=== PATIENT | female | born 1975 | race African-American/Black ===

== ENCOUNTER 2018-10-30 07:50 | Observation (INO) ==
--- NOTE | 2018-10-30 07:59 | Emergency Department Note ---
Disposition Clinical Impression: Altered level of consciousness, Hypoglycemia, Insulin overdose Disposition: Transfer Short-Term Hosp Condition: Good Referrals: NONE,PCP [Non-Partnered Physician] - Forms: ED Satisfaction Letter, Work/School Release Time of Disposition: 09:38 ( will admit for observation) General Adult HPI - General Chief complaint: ED General Medical Stated complaint: low blood sugar Time Seen by Provider: 10/30/18 07:56 Source: patient, EMS Mode of arrival: EMS Limitations: no limitations Nursing Notes Reviewed: Yes Vital Signs Reviewed: Yes - History of Present Illness HPI Narrative: 43-year-old female who presents to the emergency department via EMS, with complaints of decreased level of consciousness. Patient with known history of insulin-dependent diabetes, found by EMS to have a low blood sugar at home of 43, patient's mother not knowing this gave patient a 50 units, of insulin prior to EMS arrival, patient was given oral glucose in route and had mild improvement of symptoms she, patient is alert awake here in the emergency department. Patient with prior history of being on hemodialysis, has had recent renal transplant, and is no longer on dialysis. She still has a shunt in her right upper extremity for hemodialysis. At present patient is alert awake and able to follow commands. Onset (ago): Just [employer] DEVELOPMENT [employer] Radiation: non-radiation Pain Scale: 0 Consistency: now resolved Improves with: other (with oral glucose) Worsens with: nothing Associated symptoms: Reports: denies other symptoms Treatments Prior to Arrival: other (oral glucose) - Related Data Home Medications Medication Instructions Recorded Confirmed Atorvastatin [Lipitor] 10 mg PO HS 07/21/18 10/30/18 Cholecalciferol (D-3) [Vitamin D] 2,000 unit PO DAILY 07/21/18 10/30/18 Dulaglutide [Trulicity] 0.75 mg SQ QWEEK 07/21/18 10/30/18 Ferrous Sulfate [Iron] 325 mg PO DAILY 07/21/18 10/30/18 Insulin ASPART [Novolog Flexpen] 0 unit SQ TID 07/21/18 10/30/18 Insulin Glargine,Hum.rec.anlog 25 unit SQ BID 07/21/18 10/30/18 [Lantus Solostar] Levothyroxine Sodium [Synthroid] 137 mcg PO DAILY 07/21/18 10/30/18 Metoprolol [Lopressor] 50 mg PO BID 07/21/18 10/30/18 Phentermine/Topiramate [Qsymia 7.5 1 cap PO DAILY 07/21/18 10/30/18 mg-46 mg Capsule] Tacrolimus [Prograf] 4 mg PO BID 07/21/18 10/30/18 Everolimus [Zortress] 6 tab PO BID 07/22/18 10/30/18 Allergies Allergy/AdvReac Type Severity Reaction Status Date / Time adhesive tape AdvReac Rash Verified 06/16/17 13:07 venlafaxine [From Effexor] AdvReac Agitated Verified 06/16/17 13:11 Constitutional: Denies: fever, chills, weakness, weight change Eyes: Denies: eye pain, eye discharge, vision change ENT ED: Denies: ear pain, throat pain, dental pain, hearing loss, epistaxis, congestion, dysphagia Cardiovascular: Denies: chest pain, palpitations, dyspnea on exertion, edema, syncope Respiratory: Denies: cough, dyspnea, wheezes, hemoptysis, stridor Gastrointestinal: Denies: abdominal pain, nausea, vomiting, diarrhea, constipation, hematemesis, melena, hematochezia Genitourinary: Denies: dysuria, frequency, hematuria, discharge Musculoskeletal: Denies: back pain, neck pain, arthralgia, myalgia Integumentary: Denies: rash, abrasion, lesions Neurological: Denies: headache, weakness, numbness, paresthesias, confusion, abnormal gait, vertigo Psychiatric: Denies: anxiety, depression, suicidal thoughts, homicidal thoughts, auditory hallucinations, visual hallucinations Endocrine: Reports: fatigue, heat or cold intolerance, polydipsia Hematological/Lymphatic: Denies: easy bleeding, easy bruising Allergic/Immunologic: Denies: facial swelling, urticaria Past Medical History - Past Medical History Medical history: Reports: diabetes Surgical history: Reports: transplant (kidney) Psychiatric history: Reports: no psych history - Social History Smoking Status: Never smoker Smokeless Tobacco Status: No Alcohol use: Reports: none Drug use: Reports: none Physical Exam - General Limitations: no limitations General appearance: alert - Head Head exam: atraumatic, normocephalic, normal inspection - Eye Eye exam: Present: normal appearance, PERRL, EOMI - Expanded Eye Exam Pupils: Left: reactive - ENT ENT exam: normal exam, normal oropharynx, mucous membranes moist - Expanded ENT Exam External ear exam: Present: normal external inspection Mouth exam: Present: normal external inspection Teeth exam: Present: normal inspection Throat exam: Present: normal inspection - Neck Neck exam: Present: normal inspection, full ROM, trachea midline - Chest Chest inspection: Present: normal inspection, symmetric chest wall rise - Respiratory Respiratory exam: Present: normal lung sounds bilaterally - Cardiovascular Cardiovascular exam: Present: regular rate, normal rhythm, normal heart sounds - Abdominal Exam Abdominal exam: Present: soft, Non-Tender. Absent: tenderness, distention, guarding, rebound, rigidity - Extremities Exam Extremities exam: Present: pedal edema, other (bilateral lower extremity edma, +2/+4 ) - Expanded Upper Extremity Exam Shoulder exam: Present: normal inspection, full ROM Arm exam: Present: normal inspection, full ROM Elbow exam: Present: normal inspection, full ROM Forearm/Wrist exam: Present: normal inspection, full ROM Hand exam: Present: normal inspection, full ROM Vascular exam: Normal: capillary refill, radial pulse - Expanded Lower Extremity Exam Hip/Pelvis exam: Present: normal inspection, full ROM Upper leg exam: Present: normal inspection, full ROM Knee exam: Present: normal inspection, full ROM Lower leg exam: Present: normal inspection, full ROM Ankle exam: Present: normal inspection, full ROM Foot/toe exam: Present: normal inspection, full ROM Neurovascular/Tendon exam: Absent: motor deficit, sensory deficit, tendon deficit - Back Exam Back exam: Present: normal inspection, full ROM. Absent: tenderness - Neurological Exam Neurological exam: Present: alert, oriented X3 - Expanded Neurological Exam Patient oriented to: Present: person, place, time Coma Scale Eye Opening: Spontaneous Coma Scale Motor Response: Obeys Commands Coma Scale Verbal Response: Oriented Coma Scale Total: 15 - Psychiatric Psychiatric exam: Present: normal affect, normal mood - Skin Skin exam: Present: warm, dry, intact, normal color Course Vital Signs Temperature 97.9 F 10/30/18 07:52 Pulse Rate 63 10/30/18 07:52 Respiratory Rate 18 10/30/18 07:52 Blood Pressure 126/80 10/30/18 07:52 O2 Sat by Pulse Oximetry 100 10/30/18 07:52 Temperature 97.9 F 10/30/18 07:52 Pulse Rate 67 04/27/19 08:39 Respiratory Rate 18 10/30/18 08:39 Blood Pressure 115/56 10/30/18 08:39 O2 Sat by Pulse Oximetry 100 10/30/18 08:39 Oxygen Delivery Oxygen Delivery Room Air Procedures - Central Line Placement Right Femoral Central Line Inserted*: Yes Central Line Catheter Replacement*: No Central Line Insertion: emergent, guidewire exchange Consent Obtained: verbal consent Procedural Pause: verify patient name and date of , timeout performed per policy Patient Placed on Monitor/Pulse Ox: Yes During the Procedure: clinician is wearing sterile gloves, cap, mask,& gown during insertion, sterile field and sterile technique are maintained, patient's face is covered with drape or mask and wearing a cap Central Line Prep: Povidone-Iodine 1% Prep the Procedure Site: apply chloraprep to the skin using a back and forth scrubbing motion Local Anesthetic: lidocaine 1% Amount of anesthesia used (mL): 5 Ultrasound Used for Placement: No Central Line Lumen Inserted: triple Post Procedure: sutured in place, good blood return, all ports aspirated, flushed, capped, sterile dressing applied Patient Tolerated Procedure: well Complications: none Name of Clinician Inserting Central Line: rafia berman Date: 10/30/18 Time: 08:32 Additional Comments: I attempted a central line placement and the patient's right internal jugular, the line met with resistance after I could not pass the guidewire after 2 attempts, I moved to the right femoral region and placed a triple-lumen catheter in the right femoral vein. Patient was emergently given an amp of D50 W through the port of the central line by the nurse. Patient's blood sugar has been bottoming out's. This was done and an emergent manner, secondary to emergency and not being able to obtain a peripheral line. Medical Decision Making - [facility] Narrative Medical decision making narrative: patient was given oral orange juice, patient was also given a tray of food and started on iv d5 ns at 125 ml/hr. labs area ontained, including, cbc, comp, ua. CBC and chemistries are within normal limits patient's BUN/creatinine are slightly elevated. Patient at this point with D5 0.9% normal saline at 125 mL's an hour his markedly improved, her repeat Accu-Chek here was in the 300 range. She is alert awake and able to get out of bed without difficulty. I contacted the hospitalist and patient will be placed them for overnight observation. - Medical Records Medical records reviewed: Yes I reviewed the patient's medical records. - Lab Data Lab results reviewed: Yes I reviewed the patient's lab results. Result diagrams: 10/30/18 08:32 10/30/18 08:32 Lab Results 10/30/18 10/30/18 10/30/18 Range/Units 08:32 08:32 09:16 WBC 8.0 (4.3-11.1) K/mcL RBC 3.47 L (3.82-4.97) M/mcL Hgb 9.3 L (11.5-15.4) g/dL Hct 29.6 L (35.3-44.9) % MCV 85.3 (83.0-100.0) fL MCH 26.8 L (28.0-33.3) pg MCHC 31.4 L (31.6-35.5) g/dL RDW 15.5 H (11.5-14.5) % Plt Count 227 (140-400) K/mcL MPV 9.8 (9.4-12.4) fL Immature Gran % 0.4 (0-4) % Seg Neutrophils % 90.3 % Lymphocytes % 4.4 % Monocytes % 4.7 % Eosinophils % 0.2 % Basophils % 0.0 % Neutrophils # 7.3 (1.6-8.9) K/mcL Lymphocytes # 0.4 L (0.6-4.6) K/mcL Monocytes # 0.4 (0.0-1.3) K/mcL Eosinophils # 0.0 (0.0-0.6) K/mcL Basophils # 0.0 (0.0-0.2) K/mcL Sodium 136 (136-145) mEq/L Potassium 3.3 L (3.5-5.1) mEq/L Chloride 103 (98-107) mEq/L Carbon Dioxide 23 (23-29) mEq/L BUN 33 H (6-20) mg/dL Creatinine 2.66 H (0.60-1.20) mg/dL Est GFR ( Amer) 24 L (> 60) Est GFR (Non-Af Amer) 20 L (> 60) BUN/Creatinine Ratio 12 (6-26) Glucose 283 H (70-105) mg/dL Calculated Osmolality 300 (280-300) Calcium 9.2 (8.6-10.3) mg/dL Total Bilirubin 0.3 (0.3-1.0) mg/dL AST 9 L (13-39) Units/L ALT 7 (7-52) Units/L Alkaline Phosphatase 84 (34-104) Units/L Serum Total Protein 6.9 (6.4-8.9) g/dL Albumin 4.1 (3.5-5.7) g/dL Globulin 2.8 (2.4-3.5) g/dL Albumin/Globulin Ratio 1.5 (1.1-2.2) Urine Color Yellow (Yellow) Urine Clarity Slightly Cloudy A (Clear) Urine pH 7.0 (5.0-8.0) pH Units Ur Specific [place] 1.015 (1.010-1.025) Urine Protein 30 H (Neg-Trace) mg/dL Urine Glucose (UA) 250 H (Normal) mg/dL Urine Ketones Negative (Negative) mg/dL Urine Blood Large H (Negative) Urine Nitrite Negative (Negative) Urine Bilirubin Negative (Negative) Urine Urobilinogen Normal (Normal) mg/dL Ur Leukocyte Esterase Negative (Negative) Urine Microscopic RBC TNTC H (0-3) per hpf Urine Microscopic WBC 3-5 H (0-3) per hpf Ur Squamous Epith Cells Few (None-Few) per lpf Urine Bacteria Moderate H (None-Few) per hpf Granular Casts Few H (None Seen) per lpf - Radiology Data Radiology results reviewed: Yes I reviewed the patient's radiology results. Per radiologist chest x-ray shows borderline cardiomegaly otherwise no acute abnormality.
[2018-10-30] MEDS ORDERED: *HR* Dextrose 50 % in Water (Vial) 50 ML VIAL ONE (08:08)
[2018-10-30 08:41] LABS: Eosinophils % 0.2 %; Hematocrit 29.6 % (35.3-44.9); Hemoglobin 9.3 g/dL (11.5-15.4); Immature Granulocytes % 0.4 % (0-4); Lymphocytes # 0.4 K/mcL (0.6-4.6); Lymphocytes % 4.4 %; Mean Corpuscular HGB Conc 31.4 g/dL (31.6-35.5); Mean Corpuscular Hemoglobin 26.8 pg (28.0-33.3); Mean Corpuscular Volume 85.3 fL (83.0-100.0); Mean Platelet Volume 9.8 fL (9.4-12.4); Monocytes # 0.4 K/mcL (0.0-1.3); Monocytes % 4.7 %; Neutrophils # 7.3 K/mcL (1.6-8.9); Platelet Count 227 K/mcL (140-400); Red Blood Count 3.47 M/mcL (3.82-4.97); Red Cell Distribution Width 15.5 % (11.5-14.5); Segmented Neutrophils % 90.3 %
[2018-10-30] MEDS: D5% in 0.9% NACL w KCl 20 MEQ/1,000 ML MLS IVC SCH (08:45)
[2018-10-30] MEDS ORDERED: *HR* Dextrose 50 % in Water (Syg) 50 ML SYRINGE IVP PRN (08:52)
[2018-10-30 08:58] LABS: Albumin 4.1 g/dL (3.5-5.7); Albumin/Globulin Ratio 1.5 (1.1-2.2); Bilirubin,Total 0.3 mg/dL (0.3-1.0); Calcium 9.2 mg/dL (8.6-10.3); Globulin 2.8 g/dL (2.4-3.5); Potassium 3.3 mEq/L (3.5-5.1); Total Protein 6.9 g/dL (6.4-8.9)
[2018-10-30 09:21] LABS: Bilirubin,Urine Negative (Negative); Blood,Urine Large (Negative); Clarity,Urine Slightly Cloudy (Clear); Color,Urine Yellow (Yellow); Glucose,Urine (UA) 250 mg/dL (Normal); Ketones,Urine Negative (Negative); Leukocyte Esterase,Urine Negative (Negative); Nitrite,Urine Negative (Negative); Protein,Urine 30 mg/dL (Neg-Trace); Specific Gravity,Urine 1.015 (1.010-1.025); Urobilinogen,Urine Normal (Normal)
[2018-10-30 09:30] LABS: Squamous Epithelial Cell,Urine Few per lpf (None-Few)
[2018-10-30 09:31] LABS: Bacteria,Urine Moderate per hpf (None-Few); Granular Casts,Urine Few per lpf (None Seen); RBC,Urine TNTC per hpf (0-3)
[2018-10-30] MEDS ORDERED: Naloxone 0.4 MG/ML INJ IVP PRN ×2 (09:32→16:21)
[2018-10-30] MEDS ORDERED: *HR* Dextrose 50 % in Water (Vial) 50 ML VIAL IVP PRN (16:21)
[2018-10-30] MEDS ORDERED: D5% in 0.9% NACL w KCl 20 MEQ/1,000 ML MLS IVC SCH (16:21)
[2018-10-30] MEDS: 0.9 % Sodium Chloride w KCl 20 MEQ/1,000 ML MLS IVC SCH (18:05)
--- NOTE | 2018-10-30 19:13 | Internal Med History&Physical ---
Date of Encounter: 10/30/18 Time of Encounter: 18:35 Assessment and Plan (1) Insulin overdose Current visit: Yes Status: Acute IV dextrose has been ordered. Blood sugars will be monitored. Qualifiers: Encounter type: initial encounter Injury intent: accidental or unintentional Qualified Code(s): T38.3X1A - Poisoning by insulin and oral hypoglycemic [antidiabetic] drugs, accidental (unintentional), initial encounter (2) HTN (hypertension) Current visit: No Status: Chronic Continue Coreg Qualifiers: Hypertension type: essential hypertension Qualified Code(s): I10 - Essential (primary) hypertension (3) CKD (chronic kidney disease), stage IV Current visit: No Status: Chronic Creatinine has remained relatively stable for several months. (4) S/P kidney transplant Current visit: No Status: Chronic As per [facility]. Internal Medicine - H&P: HPI Chief complaint: Hypoglycemia Admitted From: Emergency Dept Plans for Post Hospital Care: Home History of present illness: Ms. Conley is a 43 year old female who was brought to emergency room after a family member inadvertently gave 50 units of Lantus in response to a hypoglycemic episode at home. Upon realizing the error EMS was called and documented her blood sugar low at 55 MG/DL. Patient was brought to emergency room and stabilized with IV glucose. [facility] and ongoing care needs. She reports being diagnosed with DM 1 at age 19. She checks her blood sugars multiple times daily and uses sliding scale insulin. Her basal Lantus dose is 25 units daily with minor adjustments based on blood sugar. She reports in the past 2 weeks she has had increasing number of borderline hypoglycemi a/hypoglycemia episodes. She follows with an surgical clinical reviewer at [facility] every 6 months. She is anticipating a pancreas transplant eventually. Endocrine history is pertinent otherwise for hyperlipidemia and hypothyroidism. Past Med Surg Social Fam HX - Past Medical History Medical history: diabetes, other Additional medical history: kidney transplant. anemia Psychiatric history: no psych history - Past Surgical History Surgical History: transplant (kidney) Additional surgical history: kidney transplant, HD fistula placement - Social History Smoking Status: Never smoker Smokeless Tobacco Status: No Alcohol use: none Drug use: none - Family History Mother Hx Family Cardiac Disorders: Yes Internal Medicine - H&P: Meds Atorvastatin [Lipitor] 10 mg PO HS 07/21/18 [History] Cholecalciferol (D-3) [Vitamin D] 2,000 unit PO DAILY 07/21/18 [History] Dulaglutide [Trulicity] 0.75 mg SQ QWEEK 07/21/18 [History] Ferrous Sulfate [Iron] 325 mg PO DAILY 07/21/18 [History] Insulin ASPART [Novolog Flexpen] 0 unit SQ TID 07/21/18 [History] Insulin Glargine,Hum.rec.anlog [Lantus Solostar] 25 unit SQ BID 07/21/18 [History] Levothyroxine Sodium [Synthroid] 137 mcg PO DAILY 07/21/18 [History] Metoprolol [Lopressor] 50 mg PO BID 07/21/18 [History] Phentermine/Topiramate [Qsymia 7.5 mg-46 mg Capsule] 1 cap PO DAILY 07/21/18 [History] Tacrolimus [Prograf] 4 mg PO BID 07/21/18 [History] Everolimus [Zortress] 6 tab PO BID 07/22/18 [History] Allergy/AdvReac Type Severity Reaction Status Date / Time adhesive tape AdvReac Rash Verified 06/16/17 13:07 venlafaxine [From Effexor] AdvReac Agitated Verified 06/16/17 13:11 All Systems PM: A 10-system review of systems was performed and is negative for pertinent findings except as documented above in the HPI. Review of systems: Gen.: She states her weight is decreased to 189 down from 201 since July 2018. Her weight October 2015 at time of kidney transplant was 245 pounds. Cardiovascular: She has history of hypertension. She has ASHD with SC July 2018 followed by single stent placement at [facility]. She denies heart failure DVT or pulmonary embolus Respiratory: She is a lifelong nonsmoker but reports history of asthma. She denies other known lung disorders. GI: She has had cholecystectomy. She denies disorders of her liver or exocrine pancreas. : She had kidney transplant October 2015 following acute kidney failure without significant recovery following an February 2013 spider bite with resultant cellulitis treated with IV vancomycin and steroids. She was on hemodialysis for approximately 3 months with slight recovery sufficient to discontinue hemodialys is. She reports fluid retention occurred so she returned to hemodialysis until transplant October 2015. She reports a urethral stent has been placed. Neurologic: She denies large distribution strokes or seizures. Endocrine: As per history of present illness Hematology/oncology: She has history of anemia. She denies internal malignancies or other blood disorders Psychiatric: She has PTSD but denies anxiety depression or other mental health issues [place] skeletal: She has DJD and osteopenia but denies gout. - Constitutional Vitals: Temp Pulse Resp BP Pulse Ox 97.3 F L 89 16 131/72 100 10/30/18 16:54 10/30/18 16:54 10/30/18 16:54 10/30/18 16:54 10/30/18 16:54 Exam: Gen.: She is a well-developed well-nourished female resting comfortably in bed who appears in no acute distress HEENT: Head is atraumatic and normocephalic. Eyes: EOMI. There is no scleral icterus. Mouth: Mucosa is moist. Neck: Supple and nontender. There is no thyromegaly or adenopathy noted. Heart: Regular without murmurs gallops or ectopics Lungs: No wheezes or crackles are heard. Abdomen: Soft and nontender. No masses or guarding are noted. Extremities: There is no cyanosis edema or clubbing noted. Dorsalis pedis and posterior tibial pulses are 1-2 over 2 bilaterally. She has a functioning AV fistula in her left upper arm with palpable thrill. Neurologic: Mental status: She is talkative and a good historian. Cranial nerves: Smile is symmetric. Forehead wrinkles bilaterally. Tongue protrudes midline. EOMI. Motor: There is no pronator drift. Cerebellar: Finger to nose is intact bilaterally. Skin: Warm and dry Internal Med - H&P Results - Labs CBC & Chem 7: 10/30/18 08:32 10/30/18 08:32 Labs: Short CBC 10/30/18 Range/Units 08:32 WBC 8.0 (4.3-11.1) K/mcL Hgb 9.3 L (11.5-15.4) g/dL Hct 29.6 L (35.3-44.9) % Plt Count 227 (140-400) K/mcL Neutrophils # 7.3 (1.6-8.9) K/mcL BMP 10/30/18 08:32 Sodium 136 Potassium 3.3 L Chloride 103 Carbon Dioxide 23 BUN 33 H Creatinine 2.66 H Glucose 283 H Calcium 9.2 Liver Function 10/30/18 Range/Units 08:32 Total Bilirubin 0.3 (0.3-1.0) mg/dL AST 9 L (13-39) Units/L ALT 7 (7-52) Units/L Alkaline Phosphatase 84 (34-104) Units/L Albumin 4.1 (3.5-5.7) g/dL Urine 10/30/18 Range/Units 09:16 Urine Color Yellow (Yellow) Urine Clarity Slightly Cloudy A (Clear) Urine pH 7.0 (5.0-8.0) pH Units Ur Specific [place] 1.015 (1.010-1.025) Urine Protein 30 H (Neg-Trace) mg/dL Urine Glucose (UA) 250 H (Normal) mg/dL - Impressions ITS Impressions Chest X-Ray 10/30/18 08:29 IMPRESSION: 1. Mildly enlarged cardiac silhouette. 2. Otherwise, no acute cardiopulmonary abnormality. D/ / Chauncey Crump MD / Chauncey Crump MD Interpreting Provider: Chauncey Crump MD
[2018-10-30] MEDS: *HR* Ticagrelor 90 MG TABLET PO SCH (20:25)
[2018-10-30] MEDS: ZORTRESS 0.5 MG PO SCH (20:26)
[2018-10-30] MEDS ORDERED: Patient Taking Own Medication 1 EACH PO SCH ×2 (21:00)
[2018-10-30] MEDS ORDERED: TACROLIMUS 4 MG PO SCH (21:00)
[2018-10-30] MEDS ORDERED: TACROLIMUS 0.5MG CAP PO SCH (21:00)
[2018-10-30] MEDS ORDERED: EVEROLIMUS PO SCH (21:00)
[2018-10-31] MEDS: 0.9 % Sodium Chloride w KCl 20 MEQ/1,000 ML MLS IVC SCH (04:21)
[2018-10-31 05:48] LABS: Eosinophils % 0.4 %; Hematocrit 25.6 % (35.3-44.9); Hemoglobin 8.1 g/dL (11.5-15.4); Immature Granulocytes % 0.6 % (0-4); Lymphocytes # 0.5 K/mcL (0.6-4.6); Lymphocytes % 6.9 %; Mean Corpuscular HGB Conc 31.6 g/dL (31.6-35.5); Mean Corpuscular Hemoglobin 27.2 pg (28.0-33.3); Mean Corpuscular Volume 85.9 fL (83.0-100.0); Mean Platelet Volume 10.4 fL (9.4-12.4); Monocytes # 0.7 K/mcL (0.0-1.3); Monocytes % 9.9 %; Neutrophils # 5.6 K/mcL (1.6-8.9); Platelet Count 215 K/mcL (140-400); Red Blood Count 2.98 M/mcL (3.82-4.97); Red Cell Distribution Width 15.9 % (11.5-14.5); Segmented Neutrophils % 82.2 %
[2018-10-31 06:14] LABS: Calcium 8.9 mg/dL (8.6-10.3); Magnesium 2.1 mg/dL (1.6-2.6); Phosphorous 3.6 mg/dL (2.7-4.5); Potassium 3.3 mEq/L (3.5-5.1)
[2018-10-31] MEDS ORDERED: Levothyroxine 25 MCG TABLET PO SCH (06:30)
[2018-10-31] MEDS: D5% in 0.9% NACL w KCl 20 MEQ/1,000 ML MLS IVC SCH (07:29)
[2018-10-31] MEDS: *HR* Ticagrelor 90 MG TABLET PO SCH (08:33)
[2018-10-31] MEDS: ZORTRESS 0.5 MG PO SCH (08:34)
[2018-10-31] MEDS ORDERED: TACROLIMUS 0.5 MG CAP PO SCH (09:00)
[2018-10-31] MEDS ORDERED: PHENTERMINE PO SCH (09:00)
[2018-10-31] MEDS ORDERED: TOPIRAMATE PO SCH (09:00)
[2018-10-31] MEDS ORDERED: Patient Taking Own Medication 1 EACH PO SCH (09:00)
[2018-10-31] MEDS ORDERED: Cholecalciferol (D-3) 1,000 UNIT TABLET PO SCH (09:00)
[2018-10-31 09:40] LABS: Folate 6.8 ng/mL (3.0-16.0)
--- NOTE | 2018-10-31 10:06 | Discharge Summary ---
Orders not resulted at time of discharge: Pending orders 10/31/18 04:53 Hgb A1C AM 0400 Date of Encounter: 10/31/18 Time of Encounter: 09:57 - Discharge Diagnosis (1) Insulin overdose Priority: Primary Status: Acute Qualifiers: Encounter type: initial encounter Injury intent: accidental or unintentional Qualified Code(s): T38.3X1A - Poisoning by insulin and oral hypoglycemic [antidiabetic] drugs, accidental (unintentional), initial encounter (2) HTN (hypertension) Priority: Secondary Status: Chronic Qualifiers: Hypertension type: essential hypertension Qualified Code(s): I10 - Essential (primary) hypertension (3) CKD (chronic kidney disease), stage IV Priority: Secondary Status: Chronic (4) S/P kidney transplant Priority: Secondary Status: Chronic Hospital course: Ms. Conley is a 43 year old female who was brought to emergency room after a family member inadvertently gave 50 units of Lantus in response to a hypoglycemic episode at home. Upon realizing the error EMS was called and documented her blood sugar low at 55 MG/DL. Patient was brought to emergency room and stabilized with IV glucose. She was admitted to [facility] floor for observation and ongoing care needs. Initial orders were written by the emergency room physician. I saw her on October 30 and performed a history and physical. She was initially given IV glucose. Hypoglycemia normalized and she remained stable through the remainder of her hospital course. There were no new problems and on the morning of October 31 she felt stable for discharge home. Anemia testing showed iron 69, transferrin saturation 28%, transferrin 174, ferritin 57, B12 3 920, and folate 6.8. She was given supplemental potassium prior to discharge since her potassium level remained low at 3.3. Her PCP can follow up on this. She will follow with her PCP Dr. Dave within 1 week. - Time Spent with Patient Total time spent providing and/or coordinating discharge services: - Discharge Medications Prescriptions: Continued Ferrous Sulfate [Iron] 325 mg PO DAILY Cholecalciferol (D-3) [Vitamin D] 2,000 unit PO DAILY Insulin Glargine,Hum.rec.anlog [Lantus Solostar] 25 unit SQ BID Insulin ASPART [Novolog Flexpen] 0 unit SQ TID Dulaglutide [Trulicity] 0.75 mg SQ QWEEK Levothyroxine Sodium [Synthroid] 137 mcg PO DAILY Atorvastatin [Lipitor] 10 mg PO HS Tacrolimus [Prograf] 4 mg PO BID Metoprolol [Lopressor] 50 mg PO BID Phentermine/Topiramate [Qsymia 7.5 mg-46 mg Capsule] 1 cap PO DAILY Everolimus [Zortress] 6 tab PO BID Home Medications: Atorvastatin [Lipitor] 10 mg PO HS 07/21/18 [History] Cholecalciferol (D-3) [Vitamin D] 2,000 unit PO DAILY 07/21/18 [History] Dulaglutide [Trulicity] 0.75 mg SQ QWEEK 07/21/18 [History] Ferrous Sulfate [Iron] 325 mg PO DAILY 07/21/18 [History] Insulin ASPART [Novolog Flexpen] 0 unit SQ TID 07/21/18 [History] Insulin Glargine,Hum.rec.anlog [Lantus Solostar] 25 unit SQ BID 07/21/18 [History] Levothyroxine Sodium [Synthroid] 137 mcg PO DAILY 07/21/18 [History] Metoprolol [Lopressor] 50 mg PO BID 07/21/18 [History] Phentermine/Topiramate [Qsymia 7.5 mg-46 mg Capsule] 1 cap PO DAILY 07/21/18 [History] Tacrolimus [Prograf] 4 mg PO BID 07/21/18 [History] Everolimus [Zortress] 6 tab PO BID 07/22/18 [History] Allergies/Adverse Reactions: Allergy/AdvReac Type Severity Reaction Status Date / Time adhesive tape AdvReac Rash Verified 06/16/17 13:07 venlafaxine [From Effexor] AdvReac Agitated Verified 06/16/17 13:11 Date of admission: 10/30/18 15:38 Primary care physician: Robert Dave - Constitutional Vitals: Temp Pulse Resp BP Pulse Ox 98.9 F 88 17 126/68 99 10/31/18 07:24 10/31/18 07:24 10/31/18 07:24 10/31/18 07:24 10/31/18 07:24 - Patient Status Disposition: Home, Self-Care Condition: Good - Discharge Instructions Follow Up With: Robert Dave DO [Primary Care Provider] - 1 week - Diet and Activity Activity: resume usual activities as tolerated Diet: diabetic diet
[2018-10-31 11:39] VITALS: BP 147/68
[2018-10-31 18:37] LABS: Estimated Average Glucose 171 mg/dl; Hemoglobin A1C 7.6 %
== END 2018-10-31 11:45 | disposition home or self-care (01) ==
LOC: INPPIK 07:50 → EMEROOPIK 07:50 → INPPIK 17:04
PROVIDERS: ADMIT Internal Medicine; ATTEND Internal Medicine